=== PATIENT | male | born 1945 | race Caucasian/White ===

== ENCOUNTER 2021-08-25 18:58 | Inpatient (IN) ==
[2021-08-25 20:19] LABS: Hematocrit 47.6 % (37.5-50.1); Hemoglobin 16.3 g/dL (12.9-16.9); Mean Corpuscular HGB Conc 34.2 g/dL (31.6-35.5); Mean Corpuscular Hemoglobin 29.6 pg (28.0-33.3); Mean Corpuscular Volume 86.5 fL (83.0-100.0); Mean Platelet Volume 8.2 fL (9.4-12.4); Platelet Count 385 K/mcL (140-400); Red Cell Distribution Width 13.8 % (11.5-14.5)
[2021-08-25 20:22] LABS: White Blood Count 33.8 K/mcL (4.3-11.1)
[2021-08-25 20:27] LABS: INR 1.2; Prothrombin Time 13.2 Seconds (9.4-12.1)
[2021-08-25 20:29] LABS: Activated Partial Thrombo Time 32.7 Seconds (26.0-36.0)
[2021-08-25] MEDS ORDERED: Iopamidol - 370 500 ML MLS IVP ONE (20:37)
[2021-08-25 20:40] LABS: Alanine Aminotransferase 13 Units/L (7-52); Albumin 4.2 g/dL (3.5-5.7); Albumin/Globulin Ratio 1.2 (1.1-2.2); Alkaline Phosphatase 85 Units/L (34-104); Aspartate Amino Transferase 15 Units/L (13-39); BUN/Creatinine Ratio 19 (6-26); Bilirubin,Direct 0.1 mg/dL (0.0-0.2); Bilirubin,Indirect 0.5 mg/dL (0.0-1.0); Bilirubin,Total 0.6 mg/dL (0.3-1.0); Blood Urea Nitrogen 18 mg/dL (8-23); Calcium 9.8 mg/dL (8.6-10.3); Carbon Dioxide 25 mEq/L (23-29); Chloride 95 mEq/L (98-107); Globulin 3.6 g/dL (2.4-3.5); Glucose 116 mg/dL (70-105); Lipase 23 Units/L (11-82); Osmolality,Calculated 267 (280-300); Potassium 4.6 mEq/L (3.5-5.1); Sodium 127 mEq/L (136-145); Total Protein 7.8 g/dL (6.4-8.9); Troponin I < 0.03 ng/mL (< 0.04); eGFR For African Americans > 60 (> 60); eGFR For Non-African Americans > 60 (> 60)
[2021-08-25] MEDS ORDERED: Morphine Sulfate 2 MG/ML SYRINGE IVP STA (20:47)
[2021-08-25 20:48] LABS: Lymphocytes # 2.7 K/mcL (0.6-4.6); Monocytes # 0.7 K/mcL (0.0-1.3); Neutrophils # 30.4 K/mcL (1.6-8.9)
[2021-08-25 20:49] LABS: Platelet Estimate Normal (Normal)
[2021-08-25] MEDS ORDERED: Ondansetron 4 MG/2 ML VIAL IVP ONE (20:51)
[2021-08-25] MEDS ORDERED: 0.9 % Sodium Chloride 500 ML IVC ONE (20:51)
[2021-08-25 22:19] LABS: Bilirubin,Urine Negative (Negative); Blood,Urine Negative (Negative); Clarity,Urine Clear (Clear); Color,Urine Yellow (Yellow); Glucose,Urine (UA) Normal (Normal); Hyaline Casts,Urine Few per lpf (None Seen); Ketones,Urine 10 mg/dL (Negative); Leukocyte Esterase,Urine Negative (Negative); Mucus,Urine Few per lpf (None-Few); Nitrite,Urine Negative (Negative); PH,Urine 6.5 pH Units (5.0-8.0); Protein,Urine 30 mg/dL (Neg-Trace); Specific Gravity,Urine > 1.030 (1.010-1.025); Squamous Epithelial Cell,Urine Few per hpf (None-Few); WBC,Urine 0-3 per hpf (0-3)
[2021-08-25] MEDS ORDERED: *HR* HYDROmorphone (PF) 1 MG/ML SYRINGE IVP STA (22:25)
[2021-08-25] MEDS ORDERED: Naloxone 0.4 MG/ML INJ IVP PRN (22:44)
[2021-08-25] MEDS ORDERED: Piperacillin/Tazobactam 3.375 GM in 0.9 % Sodium Chloride Mini Bag 100 ML IVPB ONE (23:00)
[2021-08-25 23:38] LABS: Magnesium 1.9 mg/dL (1.6-2.6); Phosphorous 3.8 mg/dL (2.7-4.5)
[2021-08-25 23:58] LABS: Adenovirus Not Detected (Not Detect); Bordetella Pertussis Not Detected (Not Detect); Chlamydophila pneumoniae Not Detected (Not Detect); Coronavirus 229E Not Detected (Not Detect); Coronavirus HKU1 Not Detected (Not Detect); Coronavirus NL63 Not Detected (Not Detect); Coronavirus OC43 Not Detected (Not Detect); Human Metapneumovirus Not Detected (Not Detect); Human Rhinovirus/Enterovirus DETECTED (Not Detect); Influenza A Subtype 2009 H1 Not Detected (Not Detect); Influenza B Not Detected (Not Detect); Mycoplasma pneumoniae Not Detected (Not Detect); Parainfluenza Virus 1 Not Detected (Not Detect); Parainfluenza Virus 2 Not Detected (Not Detect); Parainfluenza Virus 3 Not Detected (Not Detect); Parainfluenza Virus 4 Not Detected (Not Detect); Respiratory Syncytial Virus Not Detected (Not Detect); SARS-CoV-2 Not Detected (Not Detect)
[2021-08-26] MEDS: Ondansetron 4 MG/2 ML VIAL IVP PRN ×3 (00:42→10:42)
[2021-08-26] MEDS: 0.9 % Sodium Chloride 1,000 ML IVC SCH ×3 (00:56→20:19)
[2021-08-26] MEDS: Morphine Sulfate 2 MG/ML SYRINGE IVP PRN ×5 (01:07→20:19)
[2021-08-26] MEDS ORDERED: Ipratropium/Albuterol Neb 3 ML IH PRN (01:24)
[2021-08-26 01:38] LABS: Red Cell Distribution Width 13.8 % (11.5-14.5)
[2021-08-26 01:40] LABS: Hemoglobin 16.1 g/dL (12.9-16.9); Mean Corpuscular HGB Conc 34.3 g/dL (31.6-35.5); Mean Corpuscular Hemoglobin 29.2 pg (28.0-33.3); Mean Corpuscular Volume 85.3 fL (83.0-100.0); Mean Platelet Volume 8.1 fL (9.4-12.4); Platelet Count 409 K/mcL (140-400); Red Blood Count 5.51 M/mcL (4.19-5.50)
[2021-08-26 01:49] LABS: White Blood Count 30.9 K/mcL (4.3-11.1)
[2021-08-26 02:01] LABS: BUN/Creatinine Ratio 23 (6-26); Blood Urea Nitrogen 22 mg/dL (8-23); Calcium 9.7 mg/dL (8.6-10.3); Carbon Dioxide 23 mEq/L (23-29); Chloride 94 mEq/L (98-107); Glucose 144 mg/dL (70-105); Magnesium 1.9 mg/dL (1.6-2.6); Osmolality,Calculated 268 (280-300); Sodium 126 mEq/L (136-145); eGFR For African Americans > 60 (> 60); eGFR For Non-African Americans > 60 (> 60)
[2021-08-26 02:24] LABS: Lymphocytes # 0.6 K/mcL (0.6-4.6); Monocytes # 0.6 K/mcL (0.0-1.3); Neutrophils # 29.7 K/mcL (1.6-8.9)
[2021-08-26 05:58] LABS: Estimated Average Glucose 131 mg/dl; Hemoglobin A1C 6.2 %
[2021-08-26] MEDS ORDERED: Lidocaine Jelly 11 ml Syringe MM STA (06:43)
[2021-08-26] MEDS: Piperacillin/Tazobactam 3.375 GM in 0.9 % Sodium Chloride Mini Bag 100 ML IVPB SCH ×2 (08:02→16:21)
[2021-08-26 08:31] LABS: BUN/Creatinine Ratio 23 (6-26); Blood Urea Nitrogen 23 mg/dL (8-23); Calcium 9.2 mg/dL (8.6-10.3); Carbon Dioxide 22 mEq/L (23-29); Chloride 97 mEq/L (98-107); Glucose 143 mg/dL (70-105); Osmolality,Calculated 270 (280-300); Potassium 4.6 mEq/L (3.5-5.1); Sodium 127 mEq/L (136-145); eGFR For African Americans > 60 (> 60); eGFR For Non-African Americans > 60 (> 60)
[2021-08-26] MEDS: Pantoprazole 40 MG VIAL IVP SCH (09:12)
[2021-08-26] MEDS: Latanoprost 2.5 ML BOTTLE BOTH EYES SCH (20:20)
[2021-08-27] MEDS: Piperacillin/Tazobactam 3.375 GM in 0.9 % Sodium Chloride Mini Bag 100 ML IVPB SCH ×4 (00:49→23:40)
[2021-08-27 02:43] LABS: Hemoglobin 16.3 g/dL (12.9-16.9); Mean Corpuscular Hemoglobin 29.1 pg (28.0-33.3); Mean Corpuscular Volume 85.6 fL (83.0-100.0); Mean Platelet Volume 8.7 fL (9.4-12.4); Platelet Count 427 K/mcL (140-400); Red Blood Count 5.61 M/mcL (4.19-5.50); Red Cell Distribution Width 14.3 % (11.5-14.5)
[2021-08-27 02:45] LABS: White Blood Count 10.6 K/mcL (4.3-11.1)
[2021-08-27 03:09] LABS: Calcium 9.2 mg/dL (8.6-10.3); Potassium 4.4 mEq/L (3.5-5.1)
[2021-08-27 04:14] LABS: Lymphocytes # 1.7 K/mcL (0.6-4.6); Monocytes # 0.4 K/mcL (0.0-1.3); Neutrophils # 8.5 K/mcL (1.6-8.9)
[2021-08-27] MEDS: 0.9 % Sodium Chloride 1,000 ML IVC SCH ×3 (04:21→23:40)
[2021-08-27] MEDS: Morphine Sulfate 2 MG/ML SYRINGE IVP PRN ×3 (04:31→23:39)
[2021-08-27] MEDS: Benzonatate 100 MG CAPSULE PO PRN (04:31)
[2021-08-27] MEDS: Levothyroxine Sodium 100 MCG VIAL IVP SCH (11:21)
[2021-08-27] MEDS: Pantoprazole 40 MG VIAL IVP SCH (11:21)
[2021-08-27] MEDS ORDERED: Milk and Molasses Enema 200 ML RC ONE (13:19)
[2021-08-27] MEDS: Latanoprost 2.5 ML BOTTLE BOTH EYES SCH (19:45)
[2021-08-28 02:25] LABS: Basophils % 0.2 %; Eosinophils % 0.2 %; Hematocrit 41.2 % (37.5-50.1); Immature Granulocytes % 0.4 % (0-4); Lymphocytes # 1.5 K/mcL (0.6-4.6); Lymphocytes % 15.7 %; Mean Corpuscular HGB Conc 34.2 g/dL (31.6-35.5); Mean Corpuscular Hemoglobin 29.1 pg (28.0-33.3); Mean Corpuscular Volume 84.9 fL (83.0-100.0); Mean Platelet Volume 8.4 fL (9.4-12.4); Monocytes # 1.8 K/mcL (0.0-1.3); Monocytes % 18.3 %; Platelet Count 348 K/mcL (140-400); Red Blood Count 4.85 M/mcL (4.19-5.50); Red Cell Distribution Width 14.4 % (11.5-14.5); Segmented Neutrophils % 65.2 %; White Blood Count 9.6 K/mcL (4.3-11.1)
[2021-08-28 02:26] LABS: Hemoglobin 14.1 g/dL (12.9-16.9); Neutrophils # 6.3 K/mcL (1.6-8.9)
[2021-08-28 02:48] LABS: BUN/Creatinine Ratio 29 (6-26); Blood Urea Nitrogen 28 mg/dL (8-23); Calcium 9.1 mg/dL (8.6-10.3); Carbon Dioxide 28 mEq/L (23-29); Chloride 102 mEq/L (98-107); Glucose 97 mg/dL (70-105); Osmolality,Calculated 289 (280-300); Sodium 137 mEq/L (136-145); eGFR For African Americans > 60 (> 60); eGFR For Non-African Americans > 60 (> 60)
[2021-08-28] MEDS: 0.9 % Sodium Chloride 1,000 ML IVC SCH ×2 (03:45→14:00)
[2021-08-28] MEDS: Morphine Sulfate 2 MG/ML SYRINGE IVP PRN ×3 (05:16→20:27)
[2021-08-28] MEDS: Pantoprazole 40 MG VIAL IVP SCH (09:23)
[2021-08-28] MEDS: Piperacillin/Tazobactam 3.375 GM in 0.9 % Sodium Chloride Mini Bag 100 ML IVPB SCH ×2 (09:24→17:42)
[2021-08-28] MEDS: Levothyroxine Sodium 100 MCG VIAL IVP SCH (09:24)
[2021-08-28] MEDS ORDERED: Milk and Molasses Enema 200 ML RC ONE (10:06)
[2021-08-29] MEDS: Piperacillin/Tazobactam 3.375 GM in 0.9 % Sodium Chloride Mini Bag 100 ML IVPB SCH ×3 (00:29→17:18)
[2021-08-29 01:31] LABS: Enterococcus faecalis by PCR Not Detected (Not Detect); Enterococcus faecium by PCR Not Detected (Not Detect); vanA/B Vancomycin-Resist Genes Not Detected (Not Detect)
[2021-08-29 01:32] LABS: A.calcoaceticus-baumannii cplx Not Detected (Not Detect); Bacteroides fragilis by PCR Not Detected (Not Detect); Candida albicans by PCR Not Detected (Not Detect); Candida auris by PCR Not Detected (Not Detect); Candida glabrata by PCR Not Detected (Not Detect); Candida krusei by PCR Not Detected (Not Detect); Candida parapsilosis by PCR Not Detected (Not Detect); Candida tropicalis by PCR Not Detected (Not Detect); Crypto. neoformans/gattii PCR Not Detected (Not Detect); Enterobacter cloacae Cmplx PCR Not Detected (Not Detect); Enterobacterales by PCR Not Detected (Not Detect); Escherichia coli by PCR Not Detected (Not Detect); Klebs. pneumoniae group by PCR Not Detected (Not Detect); Klebsiella aerogenes by PCR Not Detected (Not Detect); Klebsiella oxytoca by PCR Not Detected (Not Detect); Proteus by PCR Not Detected (Not Detect); Pseudomonas aeruginosa by PCR Not Detected (Not Detect); Salmonella species by PCR Not Detected (Not Detect); Serratia marcescens by PCR Not Detected (Not Detect); Staph epidermidis by PCR Not Detected (Not Detect); Staph lugdunensis by PCR Not Detected (Not Detect); Staphylococcus aureus by PCR Not Detected (Not Detect); Staphylococcus by PCR DETECTED (Not Detect); Stenotrophomonas maltophilia Not Detected (Not Detect); Streptococcus agalactiae(B)PCR Not Detected (Not Detect); Streptococcus by PCR Not Detected (Not Detect); Streptococcus pneumoniae PCR Not Detected (Not Detect); Streptococcus pyogenes (A) PCR Not Detected (Not Detect)
[2021-08-29] MEDS: Latanoprost 2.5 ML BOTTLE BOTH EYES SCH ×2 (04:21→20:57)
[2021-08-29] MEDS: 0.9 % Sodium Chloride 1,000 ML IVC SCH (04:22)
[2021-08-29] MEDS: Morphine Sulfate 2 MG/ML SYRINGE IVP PRN (04:57)
[2021-08-29 05:06] LABS: Basophils % 0.5 %; Eosinophils % 0.2 %; Hemoglobin 14.8 g/dL (12.9-16.9); Immature Granulocytes % 0.2 % (0-4); Lymphocytes # 1.8 K/mcL (0.6-4.6); Lymphocytes % 20.7 %; Mean Corpuscular HGB Conc 33.6 g/dL (31.6-35.5); Mean Corpuscular Hemoglobin 29.2 pg (28.0-33.3); Mean Platelet Volume 8.3 fL (9.4-12.4); Monocytes # 1.4 K/mcL (0.0-1.3); Monocytes % 15.7 %; Neutrophils # 5.6 K/mcL (1.6-8.9); Platelet Count 346 K/mcL (140-400); Red Blood Count 5.06 M/mcL (4.19-5.50); Red Cell Distribution Width 14.5 % (11.5-14.5); Segmented Neutrophils % 62.7 %; White Blood Count 8.9 K/mcL (4.3-11.1)
[2021-08-29 05:17] LABS: BUN/Creatinine Ratio 22 (6-26); Blood Urea Nitrogen 16 mg/dL (8-23); Calcium 9.2 mg/dL (8.6-10.3); Carbon Dioxide 27 mEq/L (23-29); Chloride 102 mEq/L (98-107); Glucose 85 mg/dL (70-105); Osmolality,Calculated 288 (280-300); Potassium 3.5 mEq/L (3.5-5.1); Sodium 139 mEq/L (136-145); eGFR For African Americans > 60 (> 60); eGFR For Non-African Americans > 60 (> 60)
[2021-08-29 05:52] LABS: Platelet Estimate Normal (Normal)
[2021-08-29] MEDS: Levothyroxine Sodium 100 MCG VIAL IVP SCH (07:51)
[2021-08-29] MEDS: Pantoprazole 40 MG VIAL IVP SCH (07:52)
[2021-08-29] MEDS: D5% in 0.9% NACL 1,000 ML IVC SCH (15:09)
[2021-08-29] MEDS: Benzonatate 100 MG CAPSULE PO PRN (20:57)
[2021-08-30] MEDS: Piperacillin/Tazobactam 3.375 GM in 0.9 % Sodium Chloride Mini Bag 100 ML IVPB SCH ×4 (00:33→23:48)
[2021-08-30 03:50] LABS: BUN/Creatinine Ratio 17 (6-26); Blood Urea Nitrogen 11 mg/dL (8-23); Calcium 8.8 mg/dL (8.6-10.3); Carbon Dioxide 25 mEq/L (23-29); Chloride 103 mEq/L (98-107); Glucose 98 mg/dL (70-105); Osmolality,Calculated 283 (280-300); Potassium 3.1 mEq/L (3.5-5.1); Sodium 137 mEq/L (136-145); eGFR For African Americans > 60 (> 60); eGFR For Non-African Americans > 60 (> 60)
[2021-08-30] MEDS: D5% in 0.9% NACL 1,000 ML IVC SCH ×3 (04:59→17:40)
[2021-08-30] MEDS: Levothyroxine Sodium 100 MCG VIAL IVP SCH (08:54)
[2021-08-30] MEDS: Pantoprazole 40 MG VIAL IVP SCH (08:54)
[2021-08-30 09:33] LABS: Magnesium 1.8 mg/dL (1.6-2.6); Phosphorous 2.3 mg/dL (2.7-4.5); Triglycerides 79 mg/dL (< 150)
[2021-08-30] MEDS ORDERED: *HR* Propofol 200 MG/20 ML VIAL IVP ONE (10:55)
[2021-08-30] MEDS ORDERED: Lidocaine HCL 4 ML Topical Solution (Laryng-O-Jet Kit Sterile Pak) TP ONE (10:55)
[2021-08-30] MEDS ORDERED: Ondansetron 4 MG/2 ML VIAL ONE (10:55)
[2021-08-30] MEDS ORDERED: *HR* FentaNYL (PF) 100 MCG/2 ML VIAL ONE ×2 (10:55→13:24)
[2021-08-30] MEDS ORDERED: *HR* Succinylcholine 200 MG/10 ML VIAL IVP ONE (10:55)
[2021-08-30] MEDS ORDERED: Lidocaine -MPF 2% 2 ML VIAL ONE (10:55)
[2021-08-30] MEDS ORDERED: *HR* Rocuronium Bromide 50 MG/5 ML VIAL ONE (10:55)
[2021-08-30] MEDS: Ipratropium/Albuterol Neb 3 ML IH PRN (12:05)
[2021-08-30] MEDS ORDERED: Ipratropium/Albuterol Neb 3 ML IH ONE (12:18)
[2021-08-30] MEDS ORDERED: D10% in Water 500 ML IVC PRN ×2 (12:34→17:21)
[2021-08-30] MEDS ORDERED: EPHEDrine 50 MG/ML VIAL ONE (13:07)
[2021-08-30] MEDS ORDERED: Dextrose Gel 15 GM/37.5 ML TUBE PO PRN ×4 (13:26→17:21)
[2021-08-30] MEDS ORDERED: *HR* Dextrose 50 % in Water (Syg) 50 ML SYRINGE IVP PRN ×2 (13:26→17:21)
[2021-08-30] MEDS ORDERED: D5% in Water 1,000 ML IVC PRN ×2 (13:26→17:21)
[2021-08-30] MEDS: Morphine Sulfate 2 MG/ML SYRINGE IVP PRN ×2 (15:20→19:47)
[2021-08-30] MEDS: Ondansetron 4 MG/2 ML VIAL IVP PRN (15:37)
[2021-08-30] MEDS ORDERED: Insulin LISPRO 300 UNITS/3 ML VIAL SUBQ SCH (16:00)
[2021-08-30] MEDS ORDERED: Ondansetron 4 MG/2 ML VIAL IVP PRN ×2 (16:05→17:21)
[2021-08-30] MEDS ORDERED: *HR* Labetalol 20 MG/4 ML SYRINGE IVP PRN (16:05)
[2021-08-30] MEDS ORDERED: *HR* HYDROmorphone (PF) 1 MG/ML SYRINGE IVP PRN (16:05)
[2021-08-30] MEDS ORDERED: Famotidine 20 MG/2 ML VIAL IVP ONE (16:05)
[2021-08-30] MEDS ORDERED: Acetaminophen IV 1,000 MG/100 ML BAG IVPB ONE (16:05)
[2021-08-30] MEDS ORDERED: *HR* HYDROmorphone 2 MG TABLET PO PRN (16:05)
[2021-08-30] MEDS ORDERED: Clinimix E 5%-15% SOLUTION 2,000 ML with MVI, adult with vitamin K 10 ML IVC SCH ×2 (17:00→17:21)
[2021-08-30] MEDS ORDERED: Naloxone 0.4 MG/ML INJ IVP PRN (17:21)
[2021-08-30] MEDS ORDERED: Fluconazole 400 MG/200 ML 400 MG/200 ML BAG IVPB SCH (17:21)
[2021-08-30] MEDS: Fluconazole 400 MG/200 ML 400 MG/200 ML BAG IVPB SCH (20:08)
[2021-08-30] MEDS: *HR* Heparin 5,000 UNIT/ML VIAL SQ SCH (20:09)
[2021-08-30] MEDS: Latanoprost 2.5 ML BOTTLE BOTH EYES SCH (20:34)
[2021-08-30] MEDS: Acetaminophen IV 1,000 MG/100 ML BAG IVPB SCH (23:47)
[2021-08-30] MEDS: Insulin LISPRO 300 UNITS/3 ML VIAL SUBQ SCH (23:49)
[2021-08-31] MEDS: D5% in 0.9% NACL 1,000 ML IVC SCH ×2 (02:06→16:10)
[2021-08-31] MEDS: Morphine Sulfate 2 MG/ML SYRINGE IVP PRN ×2 (02:15→06:37)
[2021-08-31 03:15] LABS: Basophils % 0.1 %; Eosinophils % 0.1 %; Hematocrit 40.1 % (37.5-50.1); Hemoglobin 13.5 g/dL (12.9-16.9); Immature Granulocytes % 1.3 % (0-4); Lymphocytes # 0.8 K/mcL (0.6-4.6); Lymphocytes % 7.1 %; Mean Corpuscular HGB Conc 33.7 g/dL (31.6-35.5); Mean Corpuscular Volume 86.1 fL (83.0-100.0); Mean Platelet Volume 8.8 fL (9.4-12.4); Monocytes % 5.8 %; Neutrophils # 9.5 K/mcL (1.6-8.9); Platelet Count 307 K/mcL (140-400); Red Blood Count 4.66 M/mcL (4.19-5.50); Red Cell Distribution Width 14.2 % (11.5-14.5); Segmented Neutrophils % 85.6 %; White Blood Count 11.1 K/mcL (4.3-11.1)
[2021-08-31] MEDS: Insulin LISPRO 300 UNITS/3 ML VIAL SUBQ SCH ×6 (03:16→23:23)
[2021-08-31 03:26] LABS: Monocytes # 0.6 K/mcL (0.0-1.3)
[2021-08-31 03:28] LABS: Alanine Aminotransferase 9 Units/L (7-52); Albumin 2.5 g/dL (3.5-5.7); Albumin/Globulin Ratio 1.1 (1.1-2.2); Alkaline Phosphatase 32 Units/L (34-104); Aspartate Amino Transferase 11 Units/L (13-39); BUN/Creatinine Ratio 18 (6-26); Bilirubin,Total 0.8 mg/dL (0.3-1.0); Blood Urea Nitrogen 12 mg/dL (8-23); Calcium 7.7 mg/dL (8.6-10.3); Carbon Dioxide 20 mEq/L (23-29); Chloride 109 mEq/L (98-107); Globulin 2.3 g/dL (2.4-3.5); Glucose 196 mg/dL (70-105); Magnesium 1.6 mg/dL (1.6-2.6); Osmolality,Calculated 291 (280-300); Phosphorous 4.2 mg/dL (2.7-4.5); Potassium 3.3 mEq/L (3.5-5.1); Sodium 138 mEq/L (136-145); Total Protein 4.8 g/dL (6.4-8.9); eGFR For African Americans > 60 (> 60); eGFR For Non-African Americans > 60 (> 60)
[2021-08-31] MEDS: *HR* Heparin 5,000 UNIT/ML VIAL SQ SCH ×2 (04:50→17:46)
[2021-08-31] MEDS: Acetaminophen IV 1,000 MG/100 ML BAG IVPB SCH ×3 (05:39→17:44)
[2021-08-31] MEDS: Piperacillin/Tazobactam 3.375 GM in 0.9 % Sodium Chloride Mini Bag 100 ML IVPB SCH ×2 (10:03→16:10)
[2021-08-31] MEDS: Pantoprazole 40 MG VIAL IVP SCH (10:03)
[2021-08-31] MEDS: Fluconazole 400 MG/200 ML 400 MG/200 ML BAG IVPB SCH (10:04)
[2021-08-31] MEDS: Levothyroxine Sodium 100 MCG VIAL IVP SCH (10:05)
[2021-08-31] MEDS ORDERED: Clinimix E 5%-15% SOLUTION 2,000 ML with MVI, adult with vitamin K 10 ML IVC SCH (17:00)
[2021-08-31] MEDS ORDERED: Fluconazole 400 MG/200 ML 400 MG/200 ML BAG IVPB SCH (20:00)
[2021-09-01] MEDS: Acetaminophen IV 1,000 MG/100 ML BAG IVPB SCH ×5 (00:14→23:55)
[2021-09-01] MEDS: Piperacillin/Tazobactam 3.375 GM in 0.9 % Sodium Chloride Mini Bag 100 ML IVPB SCH ×4 (00:18→23:55)
[2021-09-01] MEDS: Insulin LISPRO 300 UNITS/3 ML VIAL SUBQ SCH ×6 (01:01→20:35)
[2021-09-01 05:20] LABS: Eosinophils % 0.1 %; Hematocrit 37.9 % (37.5-50.1); Hemoglobin 12.6 g/dL (12.9-16.9); Immature Granulocytes % 4.2 % (0-4); Lymphocytes # 2.1 K/mcL (0.6-4.6); Lymphocytes % 7.5 %; Mean Corpuscular HGB Conc 33.2 g/dL (31.6-35.5); Mean Corpuscular Hemoglobin 28.4 pg (28.0-33.3); Mean Corpuscular Volume 85.6 fL (83.0-100.0); Monocytes # 1.5 K/mcL (0.0-1.3); Monocytes % 5.3 %; Neutrophils # 23.2 K/mcL (1.6-8.9); Platelet Count 237 K/mcL (140-400); Red Blood Count 4.43 M/mcL (4.19-5.50); Red Cell Distribution Width 14.6 % (11.5-14.5); Segmented Neutrophils % 82.9 %
[2021-09-01 05:36] LABS: Alanine Aminotransferase 8 Units/L (7-52); Albumin 2.6 g/dL (3.5-5.7); Alkaline Phosphatase 37 Units/L (34-104); Aspartate Amino Transferase 11 Units/L (13-39); BUN/Creatinine Ratio 16 (6-26); Bilirubin,Total 0.5 mg/dL (0.3-1.0); Blood Urea Nitrogen 11 mg/dL (8-23); Carbon Dioxide 24 mEq/L (23-29); Chloride 105 mEq/L (98-107); Globulin 2.5 g/dL (2.4-3.5); Glucose 93 mg/dL (70-105); Magnesium 1.8 mg/dL (1.6-2.6); Osmolality,Calculated 283 (280-300); Potassium 3.5 mEq/L (3.5-5.1); Sodium 137 mEq/L (136-145); Total Protein 5.1 g/dL (6.4-8.9); eGFR For African Americans > 60 (> 60); eGFR For Non-African Americans > 60 (> 60)
[2021-09-01] MEDS: Latanoprost 2.5 ML BOTTLE BOTH EYES SCH ×2 (05:43→21:54)
[2021-09-01 06:05] LABS: Platelet Estimate Normal (Normal)
[2021-09-01] MEDS: D5% in 0.9% NACL 1,000 ML IVC SCH (06:13)
[2021-09-01] MEDS: *HR* Heparin 5,000 UNIT/ML VIAL SQ SCH ×2 (06:36→17:25)
[2021-09-01] MEDS: Pantoprazole 40 MG VIAL IVP SCH (09:55)
[2021-09-01] MEDS: Levothyroxine Sodium 100 MCG VIAL IVP SCH (09:55)
[2021-09-01] MEDS: Fluconazole 400 MG/200 ML 400 MG/200 ML BAG IVPB SCH (09:56)
[2021-09-01] MEDS ORDERED: Furosemide 40 MG/4 ML VIAL IVP ONE (09:58)
[2021-09-01] MEDS ORDERED: Potassium Phosphate 44 MEQ in 0.9 % Sodium Chloride 250 ML IVPB ONE (12:04)
[2021-09-01] MEDS ORDERED: Clinimix E 5%-15% SOLUTION 2,000 ML with MVI, adult with vitamin K 10 ML IVC SCH (17:00)
[2021-09-01] MEDS ORDERED: Furosemide 20 MG/2 ML VIAL IVP ONE (21:59)
[2021-09-01] MEDS: Ipratropium/Albuterol Neb 3 ML IH PRN (22:19)
[2021-09-02] MEDS: Insulin LISPRO 300 UNITS/3 ML VIAL SUBQ SCH ×6 (00:03→21:55)
[2021-09-02] MEDS: Acetaminophen IV 1,000 MG/100 ML BAG IVPB SCH (04:27)
[2021-09-02] MEDS: *HR* Heparin 5,000 UNIT/ML VIAL SQ SCH ×2 (04:28→16:47)
[2021-09-02 05:57] LABS: Basophils # 0.1 K/mcL (0.0-0.2); Basophils % 0.6 %; Eosinophils # 0.2 K/mcL (0.0-0.6); Eosinophils % 0.9 %; Hematocrit 36.5 % (37.5-50.1); Hemoglobin 12.2 g/dL (12.9-16.9); Immature Granulocytes % 1.7 % (0-4); Lymphocytes # 1.5 K/mcL (0.6-4.6); Lymphocytes % 7.8 %; Mean Corpuscular HGB Conc 33.4 g/dL (31.6-35.5); Mean Corpuscular Hemoglobin 28.8 pg (28.0-33.3); Mean Corpuscular Volume 86.3 fL (83.0-100.0); Mean Platelet Volume 9.6 fL (9.4-12.4); Monocytes % 4.3 %; Neutrophils # 16.7 K/mcL (1.6-8.9); Platelet Count 241 K/mcL (140-400); Red Blood Count 4.23 M/mcL (4.19-5.50); Red Cell Distribution Width 14.8 % (11.5-14.5); Segmented Neutrophils % 84.7 %; White Blood Count 19.7 K/mcL (4.3-11.1)
[2021-09-02 06:10] LABS: Monocytes # 0.9 K/mcL (0.0-1.3)
[2021-09-02 06:16] LABS: Alanine Aminotransferase 9 Units/L (7-52); Albumin 2.5 g/dL (3.5-5.7); Albumin/Globulin Ratio 0.9 (1.1-2.2); Alkaline Phosphatase 57 Units/L (34-104); Aspartate Amino Transferase 12 Units/L (13-39); BUN/Creatinine Ratio 22 (6-26); Bilirubin,Total 0.5 mg/dL (0.3-1.0); Blood Urea Nitrogen 15 mg/dL (8-23); Calcium 8.2 mg/dL (8.6-10.3); Carbon Dioxide 27 mEq/L (23-29); Chloride 102 mEq/L (98-107); Globulin 2.7 g/dL (2.4-3.5); Glucose 121 mg/dL (70-105); Magnesium 1.7 mg/dL (1.6-2.6); Osmolality,Calculated 280 (280-300); Phosphorous 2.9 mg/dL (2.7-4.5); Potassium 3.2 mEq/L (3.5-5.1); Sodium 134 mEq/L (136-145); Total Protein 5.2 g/dL (6.4-8.9); eGFR For African Americans > 60 (> 60); eGFR For Non-African Americans > 60 (> 60)
[2021-09-02] MEDS ORDERED: Furosemide 20 MG/2 ML VIAL IVP ONE (09:12)
[2021-09-02] MEDS: Piperacillin/Tazobactam 3.375 GM in 0.9 % Sodium Chloride Mini Bag 100 ML IVPB SCH ×2 (09:47→16:35)
[2021-09-02] MEDS: Pantoprazole 40 MG VIAL IVP SCH (09:48)
[2021-09-02] MEDS: Fluconazole 400 MG/200 ML 400 MG/200 ML BAG IVPB SCH (09:48)
[2021-09-02] MEDS: Levothyroxine Sodium 100 MCG VIAL IVP SCH (09:49)
[2021-09-02] MEDS ORDERED: Clinimix E 5%-15% SOLUTION 2,000 ML with MVI, adult with vitamin K 10 ML IVC SCH (17:00)
[2021-09-02] MEDS: Latanoprost 2.5 ML BOTTLE BOTH EYES SCH (21:56)
[2021-09-03] MEDS: Piperacillin/Tazobactam 3.375 GM in 0.9 % Sodium Chloride Mini Bag 100 ML IVPB SCH ×3 (00:41→17:12)
[2021-09-03] MEDS: Insulin LISPRO 300 UNITS/3 ML VIAL SUBQ SCH ×6 (00:42→20:36)
[2021-09-03] MEDS: *HR* Heparin 5,000 UNIT/ML VIAL SQ SCH ×2 (04:00→17:09)
[2021-09-03 04:28] LABS: BUN/Creatinine Ratio 25 (6-26); Blood Urea Nitrogen 15 mg/dL (8-23); Calcium 8.2 mg/dL (8.6-10.3); Carbon Dioxide 28 mEq/L (23-29); Chloride 100 mEq/L (98-107); Glucose 133 mg/dL (70-105); Magnesium 1.7 mg/dL (1.6-2.6); Osmolality,Calculated 279 (280-300); Phosphorous 3.1 mg/dL (2.7-4.5); Potassium 3.3 mEq/L (3.5-5.1); Sodium 133 mEq/L (136-145); eGFR For African Americans > 60 (> 60); eGFR For Non-African Americans > 60 (> 60)
[2021-09-03] MEDS: Levothyroxine Sodium 100 MCG VIAL IVP SCH (09:41)
[2021-09-03] MEDS: Pantoprazole 40 MG VIAL IVP SCH (09:41)
[2021-09-03] MEDS: Fluconazole 400 MG/200 ML 400 MG/200 ML BAG IVPB SCH (09:42)
[2021-09-03 09:55] LABS: Hematocrit 39.2 % (37.5-50.1); Hemoglobin 13.5 g/dL (12.9-16.9); Mean Corpuscular HGB Conc 34.4 g/dL (31.6-35.5); Mean Corpuscular Volume 84.1 fL (83.0-100.0); Mean Platelet Volume 9.5 fL (9.4-12.4); Platelet Count 275 K/mcL (140-400); Red Blood Count 4.66 M/mcL (4.19-5.50); Red Cell Distribution Width 14.4 % (11.5-14.5); White Blood Count 18.7 K/mcL (4.3-11.1)
[2021-09-03 10:26] LABS: Eosinophils # 0.2 K/mcL (0.0-0.6); Lymphocytes # 1.9 K/mcL (0.6-4.6); Monocytes # 0.2 K/mcL (0.0-1.3); Neutrophils # 16.3 K/mcL (1.6-8.9); Platelet Estimate Normal (Normal)
[2021-09-03] MEDS ORDERED: Clinimix E 5%-15% SOLUTION 2,000 ML with MVI, adult with vitamin K 10 ML IVC SCH (17:00)
[2021-09-03] MEDS: Latanoprost 2.5 ML BOTTLE BOTH EYES SCH (20:43)
[2021-09-04] MEDS: Piperacillin/Tazobactam 3.375 GM in 0.9 % Sodium Chloride Mini Bag 100 ML IVPB SCH ×3 (01:05→16:41)
[2021-09-04] MEDS: Insulin LISPRO 300 UNITS/3 ML VIAL SUBQ SCH ×7 (02:16→21:15)
[2021-09-04 03:40] LABS: Basophils # 0.1 K/mcL (0.0-0.2); Basophils % 0.6 %; Eosinophils # 0.2 K/mcL (0.0-0.6); Eosinophils % 1.2 %; Immature Granulocytes % 2.3 % (0-4); Lymphocytes # 1.6 K/mcL (0.6-4.6); Lymphocytes % 10.1 %; Mean Corpuscular HGB Conc 34.8 g/dL (31.6-35.5); Mean Corpuscular Hemoglobin 29.8 pg (28.0-33.3); Mean Corpuscular Volume 85.5 fL (83.0-100.0); Mean Platelet Volume 9.5 fL (9.4-12.4); Monocytes # 1.3 K/mcL (0.0-1.3); Monocytes % 8.6 %; Platelet Count 237 K/mcL (140-400); Red Blood Count 3.86 M/mcL (4.19-5.50); Red Cell Distribution Width 14.6 % (11.5-14.5); Segmented Neutrophils % 77.2 %; White Blood Count 15.5 K/mcL (4.3-11.1)
[2021-09-04 03:41] LABS: Hemoglobin 11.5 g/dL (12.9-16.9)
[2021-09-04 03:56] LABS: BUN/Creatinine Ratio 25 (6-26); Blood Urea Nitrogen 15 mg/dL (8-23); Calcium 8.2 mg/dL (8.6-10.3); Carbon Dioxide 25 mEq/L (23-29); Chloride 100 mEq/L (98-107); Glucose 167 mg/dL (70-105); Magnesium 1.8 mg/dL (1.6-2.6); Osmolality,Calculated 279 (280-300); Phosphorous 3.1 mg/dL (2.7-4.5); Potassium 3.6 mEq/L (3.5-5.1); Sodium 132 mEq/L (136-145); eGFR For African Americans > 60 (> 60); eGFR For Non-African Americans > 60 (> 60)
[2021-09-04] MEDS: *HR* Heparin 5,000 UNIT/ML VIAL SQ SCH ×2 (05:39→16:41)
[2021-09-04] MEDS: Levothyroxine Sodium 100 MCG VIAL IVP SCH (08:58)
[2021-09-04] MEDS: Pantoprazole 40 MG VIAL IVP SCH (08:59)
[2021-09-04] MEDS: Fluconazole 400 MG/200 ML 400 MG/200 ML BAG IVPB SCH (08:59)
[2021-09-04] MEDS ORDERED: Iopamidol - 370 500 ML MLS IVP ONE (10:51)
[2021-09-04] MEDS ORDERED: Clinimix E 5%-15% SOLUTION 2,000 ML with MVI, adult with vitamin K 10 ML IVC SCH (17:00)
[2021-09-04] MEDS: Latanoprost 2.5 ML BOTTLE BOTH EYES SCH (21:22)
[2021-09-05] MEDS: Insulin LISPRO 300 UNITS/3 ML VIAL SUBQ SCH ×5 (00:52→16:31)
[2021-09-05] MEDS: Piperacillin/Tazobactam 3.375 GM in 0.9 % Sodium Chloride Mini Bag 100 ML IVPB SCH ×3 (00:54→16:32)
[2021-09-05] MEDS: Ipratropium/Albuterol Neb 3 ML IH PRN (03:30)
[2021-09-05 03:53] LABS: Basophils % 0.2 %; Eosinophils # 0.3 K/mcL (0.0-0.6); Eosinophils % 2.1 %; Hematocrit 34.4 % (37.5-50.1); Hemoglobin 11.6 g/dL (12.9-16.9); Immature Granulocytes % 4.7 % (0-4); Lymphocytes # 2.2 K/mcL (0.6-4.6); Lymphocytes % 13.7 %; Mean Corpuscular HGB Conc 33.7 g/dL (31.6-35.5); Mean Corpuscular Hemoglobin 28.7 pg (28.0-33.3); Mean Corpuscular Volume 85.1 fL (83.0-100.0); Mean Platelet Volume 9.5 fL (9.4-12.4); Monocytes # 1.5 K/mcL (0.0-1.3); Monocytes % 9.7 %; Platelet Count 263 K/mcL (140-400); Red Blood Count 4.04 M/mcL (4.19-5.50); Red Cell Distribution Width 14.6 % (11.5-14.5); Segmented Neutrophils % 69.6 %; White Blood Count 15.8 K/mcL (4.3-11.1)
[2021-09-05 04:12] LABS: BUN/Creatinine Ratio 24 (6-26); Blood Urea Nitrogen 14 mg/dL (8-23); Calcium 8.3 mg/dL (8.6-10.3); Carbon Dioxide 25 mEq/L (23-29); Chloride 101 mEq/L (98-107); Glucose 110 mg/dL (70-105); Osmolality,Calculated 277 (280-300); Phosphorous 3.3 mg/dL (2.7-4.5); Potassium 3.6 mEq/L (3.5-5.1); Sodium 133 mEq/L (136-145); eGFR For African Americans > 60 (> 60); eGFR For Non-African Americans > 60 (> 60)
[2021-09-05] MEDS: *HR* Heparin 5,000 UNIT/ML VIAL SQ SCH ×2 (05:02→16:33)
[2021-09-05] MEDS: Pantoprazole 40 MG VIAL IVP SCH (09:06)
[2021-09-05] MEDS: Levothyroxine Sodium 100 MCG VIAL IVP SCH (09:06)
[2021-09-05] MEDS: Fluconazole 400 MG/200 ML 400 MG/200 ML BAG IVPB SCH (09:13)
[2021-09-05] MEDS ORDERED: Clinimix E 5%-15% SOLUTION 2,000 ML with MVI, adult with vitamin K 10 ML IVC SCH (17:00)
[2021-09-05] MEDS: Latanoprost 2.5 ML BOTTLE BOTH EYES SCH (19:48)
[2021-09-06] MEDS: Piperacillin/Tazobactam 3.375 GM in 0.9 % Sodium Chloride Mini Bag 100 ML IVPB SCH ×3 (00:26→16:36)
[2021-09-06] MEDS: Insulin LISPRO 300 UNITS/3 ML VIAL SUBQ SCH ×7 (04:48→23:07)
[2021-09-06 05:11] LABS: Basophils % 0.3 %; Eosinophils # 0.4 K/mcL (0.0-0.6); Eosinophils % 2.6 %; Hemoglobin 11.3 g/dL (12.9-16.9); Immature Granulocytes % 6.4 % (0-4); Lymphocytes # 1.9 K/mcL (0.6-4.6); Lymphocytes % 12.4 %; Mean Corpuscular HGB Conc 33.2 g/dL (31.6-35.5); Mean Corpuscular Hemoglobin 28.5 pg (28.0-33.3); Mean Platelet Volume 10.2 fL (9.4-12.4); Monocytes # 1.5 K/mcL (0.0-1.3); Monocytes % 9.9 %; Neutrophils # 10.7 K/mcL (1.6-8.9); Platelet Count 318 K/mcL (140-400); Red Blood Count 3.97 M/mcL (4.19-5.50); Red Cell Distribution Width 14.6 % (11.5-14.5); Segmented Neutrophils % 68.4 %; White Blood Count 15.6 K/mcL (4.3-11.1)
[2021-09-06 05:13] LABS: Basophils # 0.1 K/mcL (0.0-0.2); Mean Corpuscular Volume 85.6 fL (83.0-100.0)
[2021-09-06 05:29] LABS: BUN/Creatinine Ratio 23 (6-26); Blood Urea Nitrogen 14 mg/dL (8-23); Calcium 8.3 mg/dL (8.6-10.3); Carbon Dioxide 25 mEq/L (23-29); Chloride 98 mEq/L (98-107); Glucose 97 mg/dL (70-105); Magnesium 2.1 mg/dL (1.6-2.6); Osmolality,Calculated 272 (280-300); Phosphorous 3.3 mg/dL (2.7-4.5); Sodium 131 mEq/L (136-145); eGFR For African Americans > 60 (> 60); eGFR For Non-African Americans > 60 (> 60)
[2021-09-06] MEDS: *HR* Heparin 5,000 UNIT/ML VIAL SQ SCH ×2 (05:41→16:34)
[2021-09-06] MEDS: Levothyroxine Sodium 100 MCG VIAL IVP SCH (09:13)
[2021-09-06] MEDS: Pantoprazole 40 MG VIAL IVP SCH (09:13)
[2021-09-06] MEDS: Fluconazole 400 MG/200 ML 400 MG/200 ML BAG IVPB SCH (09:13)
[2021-09-06] MEDS ORDERED: Clinimix E 5%-15% SOLUTION 2,000 ML with MVI, adult with vitamin K 10 ML IVC SCH (17:00)
[2021-09-06] MEDS: Latanoprost 2.5 ML BOTTLE BOTH EYES SCH (21:24)
[2021-09-07] MEDS: Insulin LISPRO 300 UNITS/3 ML VIAL SUBQ SCH ×6 (01:08→21:35)
[2021-09-07] MEDS: Piperacillin/Tazobactam 3.375 GM in 0.9 % Sodium Chloride Mini Bag 100 ML IVPB SCH ×3 (01:49→17:08)
[2021-09-07] MEDS: *HR* Heparin 5,000 UNIT/ML VIAL SQ SCH ×2 (05:41→17:07)
[2021-09-07 07:35] LABS: Hematocrit 32.9 % (37.5-50.1); Hemoglobin 11.2 g/dL (12.9-16.9); Mean Corpuscular Hemoglobin 28.9 pg (28.0-33.3); Mean Corpuscular Volume 84.8 fL (83.0-100.0); Mean Platelet Volume 10.1 fL (9.4-12.4); Platelet Count 455 K/mcL (140-400); Red Blood Count 3.88 M/mcL (4.19-5.50); Red Cell Distribution Width 14.8 % (11.5-14.5); White Blood Count 16.7 K/mcL (4.3-11.1)
[2021-09-07 07:37] LABS: BUN/Creatinine Ratio 23 (6-26); Blood Urea Nitrogen 14 mg/dL (8-23); Calcium 8.2 mg/dL (8.6-10.3); Carbon Dioxide 25 mEq/L (23-29); Chloride 100 mEq/L (98-107); Glucose 123 mg/dL (70-105); Magnesium 2.1 mg/dL (1.6-2.6); Osmolality,Calculated 276 (280-300); Phosphorous 3.3 mg/dL (2.7-4.5); Sodium 132 mEq/L (136-145); eGFR For African Americans > 60 (> 60); eGFR For Non-African Americans > 60 (> 60)
[2021-09-07 08:35] LABS: Lymphocytes # 2.3 K/mcL (0.6-4.6); Neutrophils # 11.7 K/mcL (1.6-8.9)
[2021-09-07] MEDS: Levothyroxine Sodium 100 MCG VIAL IVP SCH (10:03)
[2021-09-07] MEDS: Pantoprazole 40 MG VIAL IVP SCH (10:04)
[2021-09-07] MEDS: Fluconazole 400 MG/200 ML 400 MG/200 ML BAG IVPB SCH (10:04)
[2021-09-07] MEDS: Ipratropium/Albuterol Neb 3 ML IH SCH ×4 (11:03→23:13)
[2021-09-07] MEDS ORDERED: Clinimix E 5%-15% SOLUTION 2,000 ML with MVI, adult with vitamin K 10 ML IVC SCH (17:00)
[2021-09-07] MEDS: Latanoprost 2.5 ML BOTTLE BOTH EYES SCH (21:33)
[2021-09-08] MEDS: Insulin LISPRO 300 UNITS/3 ML VIAL SUBQ SCH ×5 (00:57→16:38)
[2021-09-08] MEDS: Piperacillin/Tazobactam 3.375 GM in 0.9 % Sodium Chloride Mini Bag 100 ML IVPB SCH ×4 (01:24→23:56)
[2021-09-08] MEDS: Ipratropium/Albuterol Neb 3 ML IH SCH ×6 (04:02→23:56)
[2021-09-08] MEDS: *HR* Heparin 5,000 UNIT/ML VIAL SQ SCH ×2 (05:40→16:53)
[2021-09-08 06:01] LABS: Basophils % 0.2 %; Eosinophils # 0.2 K/mcL (0.0-0.6); Hematocrit 32.1 % (37.5-50.1); Hemoglobin 10.6 g/dL (12.9-16.9); Lymphocytes # 1.8 K/mcL (0.6-4.6); Lymphocytes % 9.3 %; Mean Corpuscular Hemoglobin 28.5 pg (28.0-33.3); Mean Corpuscular Volume 86.3 fL (83.0-100.0); Mean Platelet Volume 9.8 fL (9.4-12.4); Monocytes # 1.6 K/mcL (0.0-1.3); Monocytes % 8.2 %; Platelet Count 485 K/mcL (140-400); Red Blood Count 3.72 M/mcL (4.19-5.50); Red Cell Distribution Width 15.3 % (11.5-14.5); Segmented Neutrophils % 77.3 %; White Blood Count 19.6 K/mcL (4.3-11.1)
[2021-09-08 06:05] LABS: Neutrophils # 15.2 K/mcL (1.6-8.9)
[2021-09-08 06:25] LABS: Alanine Aminotransferase 96 Units/L (7-52); Albumin 2.5 g/dL (3.5-5.7); Albumin/Globulin Ratio 0.8 (1.1-2.2); Alkaline Phosphatase 189 Units/L (34-104); Aspartate Amino Transferase 55 Units/L (13-39); BUN/Creatinine Ratio 17 (6-26); Bilirubin,Total 0.7 mg/dL (0.3-1.0); Blood Urea Nitrogen 12 mg/dL (8-23); Calcium 8.3 mg/dL (8.6-10.3); Carbon Dioxide 25 mEq/L (23-29); Chloride 101 mEq/L (98-107); Glucose 103 mg/dL (70-105); Magnesium 2.1 mg/dL (1.6-2.6); Osmolality,Calculated 276 (280-300); Phosphorous 4.5 mg/dL (2.7-4.5); Potassium 4.1 mEq/L (3.5-5.1); Sodium 133 mEq/L (136-145); Total Protein 5.5 g/dL (6.4-8.9); eGFR For African Americans > 60 (> 60); eGFR For Non-African Americans > 60 (> 60)
[2021-09-08] MEDS: Fluconazole 400 MG/200 ML 400 MG/200 ML BAG IVPB SCH (08:33)
[2021-09-08] MEDS: Aspirin Enteric Coated 81 MG Tablet PO SCH (08:33)
[2021-09-08] MEDS: Acetylcysteine 10% 2 ML INHSOL IH SCH ×5 (10:06→23:56)
[2021-09-08 11:45] LABS: Adenovirus Not Detected (Not Detect); Bordetella Pertussis Not Detected (Not Detect); Chlamydophila pneumoniae Not Detected (Not Detect); Coronavirus 229E Not Detected (Not Detect); Coronavirus HKU1 Not Detected (Not Detect); Coronavirus NL63 Not Detected (Not Detect); Coronavirus OC43 Not Detected (Not Detect); Human Metapneumovirus Not Detected (Not Detect); Human Rhinovirus/Enterovirus Not Detected (Not Detect); Influenza A Subtype 2009 H1 Not Detected (Not Detect); Influenza B Not Detected (Not Detect); Mycoplasma pneumoniae Not Detected (Not Detect); Parainfluenza Virus 1 Not Detected (Not Detect); Parainfluenza Virus 2 Not Detected (Not Detect); Parainfluenza Virus 3 Not Detected (Not Detect); Parainfluenza Virus 4 Not Detected (Not Detect); Respiratory Syncytial Virus Not Detected (Not Detect); SARS-CoV-2 Not Detected (Not Detect)
[2021-09-08 15:01] LABS: Bilirubin,Urine Negative (Negative); Blood,Urine Negative (Negative); Clarity,Urine Clear (Clear); Color,Urine Yellow (Yellow); Glucose,Urine (UA) Normal (Normal); Ketones,Urine Negative (Negative); Leukocyte Esterase,Urine Negative (Negative); Nitrite,Urine Negative (Negative); PH,Urine 6.5 pH Units (5.0-8.0); Protein,Urine Trace mg/dL (Neg-Trace); Specific Gravity,Urine 1.026 (1.010-1.025)
[2021-09-08 15:20] LABS: Bacteria,Urine Few per hpf (None-Few); Mucus,Urine Few per lpf (None-Few); RBC,Urine 0-3 per hpf (0-3); WBC,Urine 0-3 per hpf (0-3)
[2021-09-08] MEDS: Azithromycin 250 MG TABLET PO SCH (16:51)
[2021-09-08] MEDS: Latanoprost 2.5 ML BOTTLE BOTH EYES SCH (21:05)
[2021-09-09] MEDS: Ipratropium/Albuterol Neb 3 ML IH SCH ×5 (04:32→20:45)
[2021-09-09] MEDS: Acetylcysteine 10% 2 ML INHSOL IH SCH (04:32)
[2021-09-09] MEDS: *HR* Heparin 5,000 UNIT/ML VIAL SQ SCH ×2 (06:13→17:35)
[2021-09-09 07:33] LABS: Basophils # 0.1 K/mcL (0.0-0.2); Basophils % 0.8 %; Eosinophils # 0.2 K/mcL (0.0-0.6); Eosinophils % 1.2 %; Hematocrit 32.1 % (37.5-50.1); Hemoglobin 10.7 g/dL (12.9-16.9); Immature Granulocytes % 2.9 % (0-4); Lymphocytes # 1.9 K/mcL (0.6-4.6); Lymphocytes % 11.1 %; Mean Corpuscular HGB Conc 33.3 g/dL (31.6-35.5); Mean Corpuscular Hemoglobin 29.2 pg (28.0-33.3); Mean Corpuscular Volume 87.7 fL (83.0-100.0); Mean Platelet Volume 9.9 fL (9.4-12.4); Monocytes # 1.5 K/mcL (0.0-1.3); Monocytes % 8.3 %; Neutrophils # 13.3 K/mcL (1.6-8.9); Platelet Count 595 K/mcL (140-400); Red Blood Count 3.66 M/mcL (4.19-5.50); Red Cell Distribution Width 14.9 % (11.5-14.5); Segmented Neutrophils % 75.7 %; White Blood Count 17.5 K/mcL (4.3-11.1)
[2021-09-09 07:47] LABS: BUN/Creatinine Ratio 15 (6-26); Blood Urea Nitrogen 11 mg/dL (8-23); Calcium 8.5 mg/dL (8.6-10.3); Carbon Dioxide 24 mEq/L (23-29); Chloride 104 mEq/L (98-107); Glucose 85 mg/dL (70-105); Osmolality,Calculated 283 (280-300); Potassium 4.2 mEq/L (3.5-5.1); Sodium 137 mEq/L (136-145); eGFR For African Americans > 60 (> 60); eGFR For Non-African Americans > 60 (> 60)
[2021-09-09] MEDS: Insulin LISPRO 300 UNITS/3 ML VIAL SUBQ SCH ×3 (08:09→17:29)
[2021-09-09] MEDS: Fluconazole 400 MG/200 ML 400 MG/200 ML BAG IVPB SCH (08:15)
[2021-09-09] MEDS: Piperacillin/Tazobactam 3.375 GM in 0.9 % Sodium Chloride Mini Bag 100 ML IVPB SCH ×2 (08:16→17:36)
[2021-09-09] MEDS: Azithromycin 250 MG TABLET PO SCH (08:16)
[2021-09-09] MEDS: Aspirin Enteric Coated 81 MG Tablet PO SCH (08:16)
[2021-09-09] MEDS: Latanoprost 2.5 ML BOTTLE BOTH EYES SCH (20:58)
[2021-09-10] MEDS: Ipratropium/Albuterol Neb 3 ML IH SCH ×6 (00:16→19:54)
[2021-09-10] MEDS: Piperacillin/Tazobactam 3.375 GM in 0.9 % Sodium Chloride Mini Bag 100 ML IVPB SCH ×3 (00:57→16:08)
[2021-09-10 01:25] LABS: Basophils # 0.1 K/mcL (0.0-0.2); Eosinophils # 0.2 K/mcL (0.0-0.6); Eosinophils % 1.7 %; Hematocrit 31.7 % (37.5-50.1); Hemoglobin 10.8 g/dL (12.9-16.9); Immature Granulocytes % 3.9 % (0-4); Lymphocytes # 2.4 K/mcL (0.6-4.6); Lymphocytes % 18.2 %; Mean Corpuscular HGB Conc 34.1 g/dL (31.6-35.5); Mean Corpuscular Hemoglobin 29.3 pg (28.0-33.3); Mean Corpuscular Volume 85.9 fL (83.0-100.0); Mean Platelet Volume 9.5 fL (9.4-12.4); Monocytes # 1.2 K/mcL (0.0-1.3); Neutrophils # 8.8 K/mcL (1.6-8.9); Platelet Count 631 K/mcL (140-400); Red Blood Count 3.69 M/mcL (4.19-5.50); Red Cell Distribution Width 14.9 % (11.5-14.5); Segmented Neutrophils % 66.2 %; White Blood Count 13.3 K/mcL (4.3-11.1)
[2021-09-10 02:18] LABS: BUN/Creatinine Ratio 12 (6-26); Blood Urea Nitrogen 8 mg/dL (8-23); Calcium 8.6 mg/dL (8.6-10.3); Carbon Dioxide 25 mEq/L (23-29); Chloride 102 mEq/L (98-107); Glucose 97 mg/dL (70-105); Osmolality,Calculated 274 (280-300); Potassium 3.9 mEq/L (3.5-5.1); Sodium 133 mEq/L (136-145); eGFR For African Americans > 60 (> 60); eGFR For Non-African Americans > 60 (> 60)
[2021-09-10] MEDS: *HR* Heparin 5,000 UNIT/ML VIAL SQ SCH (05:31)
[2021-09-10] MEDS: Aspirin Enteric Coated 81 MG Tablet PO SCH (08:14)
[2021-09-10] MEDS: Insulin LISPRO 300 UNITS/3 ML VIAL SUBQ SCH ×2 (08:14→12:50)
[2021-09-10] MEDS: Azithromycin 250 MG TABLET PO SCH (08:15)
[2021-09-10] MEDS: Fluconazole 400 MG/200 ML 400 MG/200 ML BAG IVPB SCH (08:16)
[2021-09-10] MEDS ORDERED: Iopamidol - 370 500 ML MLS IVP ONE (09:11)
[2021-09-10] MEDS ORDERED: Albumin Human 5% 12.5 GM/250 ML IV.SOLN ONE ×2 (16:22→20:33)
[2021-09-10] MEDS ORDERED: *HR* Propofol 200 MG/20 ML VIAL IVP ONE (16:26)
[2021-09-10] MEDS ORDERED: *HR* FentaNYL (PF) 100 MCG/2 ML VIAL ONE (16:26)
[2021-09-10] MEDS ORDERED: Lidocaine -MPF 2% 2 ML VIAL ONE ×2 (16:27)
[2021-09-10] MEDS ORDERED: Ondansetron 4 MG/2 ML VIAL ONE (16:27)
[2021-09-10] MEDS ORDERED: *HR* Succinylcholine 200 MG/10 ML VIAL IVP ONE (16:27)
[2021-09-10] MEDS ORDERED: *HR* Rocuronium Bromide 50 MG/5 ML VIAL ONE ×2 (16:27)
[2021-09-10] MEDS ORDERED: CefOXitin 2,000 MG VIAL ONE ×3 (16:56→20:52)
[2021-09-10] MEDS ORDERED: Insulin LISPRO 300 UNITS/3 ML VIAL SUBQ SCH (18:00)
[2021-09-10] MEDS ORDERED: *HR* HYDROMORPHONE 2 MG/ML VIAL ONE (19:14)
[2021-09-10] MEDS ORDERED: Ketamine HCL *QUVA* 50mg (1mL) SYRINGE ONE (19:21)
[2021-09-10] MEDS ORDERED: CefOXitin 1,000 MG VIAL ONE (20:53)
[2021-09-10] MEDS ORDERED: Sugammadex Sodium 200 MG/2 ML VIAL IV ONE (21:14)
[2021-09-10] MEDS: *HR* FentaNYL (PF) 100 MCG/2 ML VIAL IVP PRN ×4 (22:11→22:30)
[2021-09-10] MEDS ORDERED: *HR* Dextrose 50 % in Water (Syg) 50 ML SYRINGE IVP PRN (23:37)
[2021-09-10] MEDS ORDERED: D5% in Water 1,000 ML IVC PRN (23:37)
[2021-09-10] MEDS ORDERED: Dextrose Gel 15 GM/37.5 ML TUBE PO PRN ×2 (23:37)
[2021-09-10] MEDS ORDERED: Clinimix E 5%-20% SOLUTION 2,000 ML with MVI, adult with vitamin K 10 ML IVC SCH (23:37)
[2021-09-11] MEDS: Ipratropium/Albuterol Neb 3 ML IH SCH ×7 (00:28→23:23)
[2021-09-11] MEDS: Insulin LISPRO 300 UNITS/3 ML VIAL SUBQ SCH ×5 (00:54→23:50)
[2021-09-11] MEDS: *HR* Heparin 5,000 UNIT/ML VIAL SQ SCH ×2 (05:12→17:37)
[2021-09-11 05:50] LABS: Hematocrit 33.1 % (37.5-50.1); Hemoglobin 11.3 g/dL (12.9-16.9); Mean Corpuscular HGB Conc 34.1 g/dL (31.6-35.5); Mean Corpuscular Hemoglobin 29.6 pg (28.0-33.3); Mean Corpuscular Volume 86.6 fL (83.0-100.0); Mean Platelet Volume 9.6 fL (9.4-12.4); Platelet Count 705 K/mcL (140-400); Red Blood Count 3.82 M/mcL (4.19-5.50); Red Cell Distribution Width 15.1 % (11.5-14.5)
[2021-09-11 05:55] LABS: White Blood Count 23.5 K/mcL (4.3-11.1)
[2021-09-11 06:19] LABS: Lymphocytes # 1.4 K/mcL (0.6-4.6); Monocytes # 0.9 K/mcL (0.0-1.3); Neutrophils # 21.2 K/mcL (1.6-8.9)
[2021-09-11 06:20] LABS: Platelet Estimate Increased (Normal)
[2021-09-11] MEDS: Morphine Sulfate 2 MG/ML SYRINGE IVP PRN ×2 (06:30→09:10)
[2021-09-11] MEDS ORDERED: Azithromycin 500 MG in 0.9 % Sodium Chloride 250 ML IVPB SCH (09:00)
[2021-09-11] MEDS ORDERED: Pantoprazole 40 MG VIAL IVP SCH (09:00)
[2021-09-11] MEDS ORDERED: lisinopriL 20 MG TABLET PO SCH (09:00)
[2021-09-11] MEDS: Pantoprazole 40 MG VIAL IVP SCH (09:08)
[2021-09-11] MEDS: Piperacillin/Tazobactam 3.375 GM in 0.9 % Sodium Chloride Mini Bag 100 ML IVPB SCH ×3 (09:09→22:54)
[2021-09-11] MEDS: Fluconazole 400 MG/200 ML 400 MG/200 ML BAG IVPB SCH (09:09)
[2021-09-11] MEDS: Ringers Solution, Lactated 1,000 ML IVC SCH ×2 (09:10→20:31)
[2021-09-11] MEDS: 0.9 % Sodium Chloride 1,000 ML IVC SCH ×3 (15:58→22:55)
[2021-09-11] MEDS ORDERED: *HR* Metoprolol 5 MG/5 ML VIAL IVP PRN (17:49)
[2021-09-11] MEDS: D5% in 0.9% NACL w KCl 20 MEQ/1,000 ML MLS IVC SCH (20:30)
[2021-09-11] MEDS: Latanoprost 2.5 ML BOTTLE BOTH EYES SCH (20:31)
[2021-09-11 21:24] LABS: Albumin 2.4 g/dL (3.5-5.7); Bilirubin,Total 0.8 mg/dL (0.3-1.0); Calcium 7.6 mg/dL (8.6-10.3); Globulin 2.3 g/dL (2.4-3.5); Magnesium 1.7 mg/dL (1.6-2.6); Potassium 4.6 mEq/L (3.5-5.1); Total Protein 4.7 g/dL (6.4-8.9)
[2021-09-12] MEDS: 0.9 % Sodium Chloride 1,000 ML IVC SCH (00:30)
[2021-09-12 03:43] LABS: Hematocrit 25.4 % (37.5-50.1); Mean Corpuscular HGB Conc 33.9 g/dL (31.6-35.5); Monocytes % 4.9 %
[2021-09-12 03:45] LABS: Basophils # 0.1 K/mcL (0.0-0.2); Basophils % 0.3 %; Hemoglobin 8.6 g/dL (12.9-16.9); Immature Granulocytes % 1.4 % (0-4); Lymphocytes # 1.5 K/mcL (0.6-4.6); Lymphocytes % 5.4 %; Mean Corpuscular Hemoglobin 29.5 pg (28.0-33.3); Mean Platelet Volume 9.4 fL (9.4-12.4); Monocytes # 1.4 K/mcL (0.0-1.3); Platelet Count 576 K/mcL (140-400); Red Blood Count 2.92 M/mcL (4.19-5.50); Red Cell Distribution Width 15.3 % (11.5-14.5); White Blood Count 28.4 K/mcL (4.3-11.1)
[2021-09-12 04:05] LABS: Calcium 6.8 mg/dL (8.6-10.3); Magnesium 1.5 mg/dL (1.6-2.6); Phosphorous 3.6 mg/dL (2.7-4.5); Potassium 3.9 mEq/L (3.5-5.1)
[2021-09-12] MEDS: Ipratropium/Albuterol Neb 3 ML IH SCH ×5 (04:05→20:30)
[2021-09-12] MEDS: *HR* Heparin 5,000 UNIT/ML VIAL SQ SCH ×2 (05:39→13:32)
[2021-09-12] MEDS: Insulin LISPRO 300 UNITS/3 ML VIAL SUBQ SCH ×3 (05:40→18:08)
[2021-09-12 08:48] LABS: Hematocrit 27.1 % (37.5-50.1); Hemoglobin 9.2 g/dL (12.9-16.9)
[2021-09-12] MEDS: Pantoprazole 40 MG VIAL IVP SCH (09:14)
[2021-09-12] MEDS: Piperacillin/Tazobactam 3.375 GM in 0.9 % Sodium Chloride Mini Bag 100 ML IVPB SCH ×2 (09:15→16:59)
[2021-09-12] MEDS: Fluconazole 400 MG/200 ML 400 MG/200 ML BAG IVPB SCH (09:16)
[2021-09-12] MEDS: Acetaminophen IV 1,000 MG/100 ML BAG IVPB SCH ×2 (12:59→18:08)
[2021-09-12] MEDS: D5% in 0.9% NACL w KCl 20 MEQ/1,000 ML MLS IVC SCH (13:29)
[2021-09-12 13:31] LABS: Hematocrit 28.5 % (37.5-50.1); Hemoglobin 9.7 g/dL (12.9-16.9)
[2021-09-12] MEDS: Latanoprost 2.5 ML BOTTLE BOTH EYES SCH ×2 (13:32→21:53)
[2021-09-12] MEDS ORDERED: Clinimix E 5%-15% SOLUTION 2,000 ML with MVI, adult with vitamin K 10 ML IVC SCH (17:00)
[2021-09-12] MEDS: Morphine Sulfate 2 MG/ML SYRINGE IVP PRN (21:46)
[2021-09-13] MEDS: Insulin LISPRO 300 UNITS/3 ML VIAL SUBQ SCH ×4 (00:04→19:18)
[2021-09-13] MEDS: Ipratropium/Albuterol Neb 3 ML IH SCH ×7 (00:07→22:54)
[2021-09-13] MEDS: Piperacillin/Tazobactam 3.375 GM in 0.9 % Sodium Chloride Mini Bag 100 ML IVPB SCH ×3 (00:17→17:31)
[2021-09-13] MEDS: Acetaminophen IV 1,000 MG/100 ML BAG IVPB SCH ×4 (00:18→17:32)
[2021-09-13] MEDS: D5% in 0.9% NACL w KCl 20 MEQ/1,000 ML MLS IVC SCH ×2 (00:18→17:17)
[2021-09-13] MEDS: Morphine Sulfate 2 MG/ML SYRINGE IVP PRN ×3 (02:13→20:09)
[2021-09-13] MEDS: Fluconazole 400 MG/200 ML 400 MG/200 ML BAG IVPB SCH (09:08)
[2021-09-13] MEDS: Pantoprazole 40 MG VIAL IVP SCH (09:09)
[2021-09-13 10:05] LABS: Mean Corpuscular Hemoglobin 28.9 pg (28.0-33.3); White Blood Count 26.6 K/mcL (4.3-11.1)
[2021-09-13 10:07] LABS: Hematocrit 24.4 % (37.5-50.1); Hemoglobin 8.1 g/dL (12.9-16.9); Mean Corpuscular HGB Conc 33.2 g/dL (31.6-35.5); Mean Corpuscular Volume 87.1 fL (83.0-100.0); Mean Platelet Volume 9.4 fL (9.4-12.4); Platelet Count 531 K/mcL (140-400); Red Cell Distribution Width 15.4 % (11.5-14.5)
[2021-09-13 10:30] LABS: Alanine Aminotransferase 24 Units/L (7-52); Albumin 2.1 g/dL (3.5-5.7); Albumin/Globulin Ratio 0.9 (1.1-2.2); Alkaline Phosphatase 60 Units/L (34-104); Aspartate Amino Transferase 20 Units/L (13-39); BUN/Creatinine Ratio 22 (6-26); Bilirubin,Total 0.4 mg/dL (0.3-1.0); Blood Urea Nitrogen 18 mg/dL (8-23); Calcium 7.8 mg/dL (8.6-10.3); Carbon Dioxide 23 mEq/L (23-29); Chloride 110 mEq/L (98-107); Globulin 2.3 g/dL (2.4-3.5); Glucose 122 mg/dL (70-105); Magnesium 2.1 mg/dL (1.6-2.6); Osmolality,Calculated 285 (280-300); Phosphorous 2.5 mg/dL (2.7-4.5); Potassium 3.8 mEq/L (3.5-5.1); Sodium 136 mEq/L (136-145); Total Protein 4.4 g/dL (6.4-8.9); Triglycerides 107 mg/dL (< 150); eGFR For African Americans > 60 (> 60); eGFR For Non-African Americans > 60 (> 60)
[2021-09-13] MEDS ORDERED: D10% in Water 500 ML IVC PRN (13:40)
[2021-09-13 15:10] LABS: Lymphocytes # 0.5 K/mcL (0.6-4.6); Neutrophils # 26.1 K/mcL (1.6-8.9); Platelet Clumps Few (Not Present); Platelet Estimate Increased (Normal); Toxic Granulation Present (Not Present)
[2021-09-13] MEDS ORDERED: Clinimix E 5%-15% SOLUTION 2,000 ML with MVI, adult with vitamin K 10 ML IVC SCH (17:00)
[2021-09-13] MEDS: Latanoprost 2.5 ML BOTTLE BOTH EYES SCH (20:16)
[2021-09-14] MEDS: D5% in 0.9% NACL w KCl 20 MEQ/1,000 ML MLS IVC SCH ×3 (00:54→17:44)
[2021-09-14] MEDS: Acetaminophen IV 1,000 MG/100 ML BAG IVPB SCH ×4 (00:55→17:44)
[2021-09-14] MEDS: Insulin LISPRO 300 UNITS/3 ML VIAL SUBQ SCH ×4 (00:55→17:34)
[2021-09-14] MEDS: Piperacillin/Tazobactam 3.375 GM in 0.9 % Sodium Chloride Mini Bag 100 ML IVPB SCH ×3 (00:55→16:39)
[2021-09-14] MEDS: Morphine Sulfate 2 MG/ML SYRINGE IVP PRN ×5 (01:26→19:32)
[2021-09-14] MEDS: Ipratropium/Albuterol Neb 3 ML IH SCH ×6 (04:04→23:03)
[2021-09-14 04:46] LABS: Basophils # 0.1 K/mcL (0.0-0.2); Basophils % 0.3 %; Eosinophils # 0.4 K/mcL (0.0-0.6); Hematocrit 23.4 % (37.5-50.1); Hemoglobin 7.7 g/dL (12.9-16.9); Immature Granulocytes % 1.9 % (0-4); Lymphocytes # 1.9 K/mcL (0.6-4.6); Lymphocytes % 8.9 %; Mean Corpuscular HGB Conc 32.9 g/dL (31.6-35.5); Mean Corpuscular Hemoglobin 28.6 pg (28.0-33.3); Mean Platelet Volume 9.6 fL (9.4-12.4); Monocytes # 0.7 K/mcL (0.0-1.3); Monocytes % 3.5 %; Neutrophils # 17.7 K/mcL (1.6-8.9); Platelet Count 480 K/mcL (140-400); Red Blood Count 2.69 M/mcL (4.19-5.50); Red Cell Distribution Width 15.7 % (11.5-14.5); Segmented Neutrophils % 83.4 %; White Blood Count 21.2 K/mcL (4.3-11.1)
[2021-09-14 05:14] LABS: Alanine Aminotransferase 23 Units/L (7-52); Albumin 1.9 g/dL (3.5-5.7); Albumin/Globulin Ratio 0.8 (1.1-2.2); Alkaline Phosphatase 61 Units/L (34-104); Aspartate Amino Transferase 21 Units/L (13-39); BUN/Creatinine Ratio 20 (6-26); Bilirubin,Total 0.3 mg/dL (0.3-1.0); Blood Urea Nitrogen 13 mg/dL (8-23); Calcium 7.5 mg/dL (8.6-10.3); Carbon Dioxide 22 mEq/L (23-29); Chloride 110 mEq/L (98-107); Globulin 2.5 g/dL (2.4-3.5); Glucose 127 mg/dL (70-105); Magnesium 1.7 mg/dL (1.6-2.6); Osmolality,Calculated 284 (280-300); Phosphorous 2.8 mg/dL (2.7-4.5); Sodium 136 mEq/L (136-145); Total Protein 4.4 g/dL (6.4-8.9); eGFR For African Americans > 60 (> 60); eGFR For Non-African Americans > 60 (> 60)
[2021-09-14] MEDS ORDERED: Furosemide 20 MG/2 ML VIAL IVP ONE (06:55)
[2021-09-14] MEDS ORDERED: 0.9 % Sodium Chloride 250 ML IVC SCH (07:00)
[2021-09-14] MEDS: Pantoprazole 40 MG VIAL IVP SCH (08:55)
[2021-09-14] MEDS: Fluconazole 400 MG/200 ML 400 MG/200 ML BAG IVPB SCH (08:55)
[2021-09-14] MEDS ORDERED: Clinimix E 5%-15% SOLUTION 2,000 ML with MVI, adult with vitamin K 10 ML IVC SCH (17:00)
[2021-09-14] MEDS: Latanoprost 2.5 ML BOTTLE BOTH EYES SCH (19:18)
[2021-09-15] MEDS: Insulin LISPRO 300 UNITS/3 ML VIAL SUBQ SCH ×4 (00:25→20:53)
[2021-09-15] MEDS: Acetaminophen IV 1,000 MG/100 ML BAG IVPB SCH ×4 (00:47→19:35)
[2021-09-15] MEDS: Piperacillin/Tazobactam 3.375 GM in 0.9 % Sodium Chloride Mini Bag 100 ML IVPB SCH ×3 (00:48→17:06)
[2021-09-15] MEDS: Morphine Sulfate 2 MG/ML SYRINGE IVP PRN ×5 (00:49→20:51)
[2021-09-15] MEDS: Ipratropium/Albuterol Neb 3 ML IH SCH ×6 (03:59→23:12)
[2021-09-15 05:55] LABS: Mean Corpuscular HGB Conc 33.6 g/dL (31.6-35.5); Mean Corpuscular Hemoglobin 29.3 pg (28.0-33.3); Mean Corpuscular Volume 87.2 fL (83.0-100.0); Mean Platelet Volume 9.4 fL (9.4-12.4); Platelet Count 458 K/mcL (140-400); Red Blood Count 3.21 M/mcL (4.19-5.50); Red Cell Distribution Width 14.8 % (11.5-14.5); White Blood Count 16.7 K/mcL (4.3-11.1)
[2021-09-15 05:56] LABS: Hemoglobin 9.4 g/dL (12.9-16.9)
[2021-09-15 07:15] LABS: Alanine Aminotransferase 22 Units/L (7-52); Albumin 2.1 g/dL (3.5-5.7); Albumin/Globulin Ratio 0.8 (1.1-2.2); Alkaline Phosphatase 68 Units/L (34-104); Aspartate Amino Transferase 22 Units/L (13-39); BUN/Creatinine Ratio 20 (6-26); Bilirubin,Total 0.4 mg/dL (0.3-1.0); Blood Urea Nitrogen 11 mg/dL (8-23); Calcium 7.6 mg/dL (8.6-10.3); Carbon Dioxide 25 mEq/L (23-29); Chloride 103 mEq/L (98-107); Globulin 2.6 g/dL (2.4-3.5); Glucose 126 mg/dL (70-105); Magnesium 1.5 mg/dL (1.6-2.6); Osmolality,Calculated 275 (280-300); Phosphorous 2.7 mg/dL (2.7-4.5); Sodium 132 mEq/L (136-145); Total Protein 4.7 g/dL (6.4-8.9); eGFR For African Americans > 60 (> 60); eGFR For Non-African Americans > 60 (> 60)
[2021-09-15] MEDS: D5% in 0.9% NACL w KCl 20 MEQ/1,000 ML MLS IVC SCH ×2 (08:15→21:42)
[2021-09-15] MEDS: Pantoprazole 40 MG VIAL IVP SCH (09:22)
[2021-09-15] MEDS: Fluconazole 400 MG/200 ML 400 MG/200 ML BAG IVPB SCH (09:23)
[2021-09-15] MEDS: *HR* Metoprolol 5 MG/5 ML VIAL IVP SCH ×2 (12:58→17:07)
[2021-09-15] MEDS ORDERED: Clinimix E 5%-20% SOLUTION 2,000 ML, Amino Acids 10% 200 ML with MVI, adult with vita... IVC SCH (17:00)
[2021-09-15] MEDS: Latanoprost 2.5 ML BOTTLE BOTH EYES SCH (20:53)
[2021-09-16] MEDS: Piperacillin/Tazobactam 3.375 GM in 0.9 % Sodium Chloride Mini Bag 100 ML IVPB SCH ×3 (01:12→17:47)
[2021-09-16] MEDS: Acetaminophen IV 1,000 MG/100 ML BAG IVPB SCH ×4 (01:12→17:50)
[2021-09-16] MEDS: Insulin LISPRO 300 UNITS/3 ML VIAL SUBQ SCH ×4 (01:13→18:24)
[2021-09-16] MEDS: *HR* Metoprolol 5 MG/5 ML VIAL IVP SCH ×4 (01:13→17:53)
[2021-09-16] MEDS: Ipratropium/Albuterol Neb 3 ML IH SCH ×5 (04:05→20:32)
[2021-09-16] MEDS: Morphine Sulfate 2 MG/ML SYRINGE IVP PRN ×3 (05:21→20:28)
[2021-09-16] MEDS ORDERED: Iopamidol - 370 500 ML MLS IVP ONE (06:00)
[2021-09-16 06:01] LABS: Alanine Aminotransferase 21 Units/L (7-52); Albumin 2.1 g/dL (3.5-5.7); Albumin/Globulin Ratio 0.8 (1.1-2.2); Alkaline Phosphatase 78 Units/L (34-104); Aspartate Amino Transferase 21 Units/L (13-39); BUN/Creatinine Ratio 21 (6-26); Bilirubin,Total 0.4 mg/dL (0.3-1.0); Blood Urea Nitrogen 11 mg/dL (8-23); Calcium 7.8 mg/dL (8.6-10.3); Carbon Dioxide 25 mEq/L (23-29); Chloride 102 mEq/L (98-107); Globulin 2.8 g/dL (2.4-3.5); Glucose 132 mg/dL (70-105); Magnesium 1.6 mg/dL (1.6-2.6); Osmolality,Calculated 273 (280-300); Phosphorous 2.6 mg/dL (2.7-4.5); Potassium 3.9 mEq/L (3.5-5.1); Sodium 131 mEq/L (136-145); Total Protein 4.9 g/dL (6.4-8.9); eGFR For African Americans > 60 (> 60); eGFR For Non-African Americans > 60 (> 60)
[2021-09-16] MEDS: Ondansetron 4 MG/2 ML VIAL IVP PRN ×2 (08:00→20:28)
[2021-09-16] MEDS: Pantoprazole 40 MG VIAL IVP SCH (09:40)
[2021-09-16 10:02] LABS: Hematocrit 28.5 % (37.5-50.1); Hemoglobin 9.6 g/dL (12.9-16.9); Mean Corpuscular HGB Conc 33.7 g/dL (31.6-35.5); Mean Corpuscular Hemoglobin 29.1 pg (28.0-33.3); Mean Corpuscular Volume 86.4 fL (83.0-100.0); Mean Platelet Volume 9.3 fL (9.4-12.4); Platelet Count 334 K/mcL (140-400); Red Cell Distribution Width 14.6 % (11.5-14.5); White Blood Count 16.9 K/mcL (4.3-11.1)
[2021-09-16 10:53] LABS: Hypochromasia Present (Not Present); Monocytes # 1.7 K/mcL (0.0-1.3); Neutrophils # 12.8 K/mcL (1.6-8.9); Platelet Estimate Normal (Normal)
[2021-09-16] MEDS: Fluconazole 400 MG/200 ML 400 MG/200 ML BAG IVPB SCH (11:01)
[2021-09-16] MEDS: D5% in 0.9% NACL w KCl 20 MEQ/1,000 ML MLS IVC SCH (12:49)
[2021-09-16] MEDS ORDERED: Clinimix E 5%-20% SOLUTION 2,000 ML, Amino Acids 10% 200 ML with MVI, adult with vita... IVC SCH (17:00)
[2021-09-16] MEDS: Latanoprost 2.5 ML BOTTLE BOTH EYES SCH (20:13)
[2021-09-17] MEDS: Acetaminophen IV 1,000 MG/100 ML BAG IVPB SCH ×5 (00:28→23:03)
[2021-09-17] MEDS: *HR* Metoprolol 5 MG/5 ML VIAL IVP SCH ×5 (00:41→23:09)
[2021-09-17] MEDS: Piperacillin/Tazobactam 3.375 GM in 0.9 % Sodium Chloride Mini Bag 100 ML IVPB SCH ×4 (00:41→23:08)
[2021-09-17] MEDS: Insulin LISPRO 300 UNITS/3 ML VIAL SUBQ SCH ×4 (00:42→16:57)
[2021-09-17] MEDS: Ipratropium/Albuterol Neb 3 ML IH SCH ×7 (01:50→23:10)
[2021-09-17] MEDS: D5% in 0.9% NACL w KCl 20 MEQ/1,000 ML MLS IVC SCH ×2 (02:00→14:47)
[2021-09-17] MEDS: Ondansetron 4 MG/2 ML VIAL IVP PRN (05:13)
[2021-09-17 06:21] LABS: Basophils # 0.1 K/mcL (0.0-0.2); Basophils % 0.3 %; Eosinophils # 0.5 K/mcL (0.0-0.6); Eosinophils % 2.7 %; Hematocrit 27.9 % (37.5-50.1); Hemoglobin 9.3 g/dL (12.9-16.9); Immature Granulocytes % 10.3 % (0-4); Lymphocytes # 1.7 K/mcL (0.6-4.6); Lymphocytes % 9.4 %; Mean Corpuscular HGB Conc 33.3 g/dL (31.6-35.5); Mean Corpuscular Hemoglobin 28.7 pg (28.0-33.3); Mean Corpuscular Volume 86.1 fL (83.0-100.0); Mean Platelet Volume 9.3 fL (9.4-12.4); Monocytes # 1.3 K/mcL (0.0-1.3); Monocytes % 7.1 %; Neutrophils # 12.4 K/mcL (1.6-8.9); Platelet Count 532 K/mcL (140-400); Red Blood Count 3.24 M/mcL (4.19-5.50); Red Cell Distribution Width 14.7 % (11.5-14.5); Segmented Neutrophils % 70.2 %; White Blood Count 17.7 K/mcL (4.3-11.1)
[2021-09-17 06:42] LABS: Alanine Aminotransferase 21 Units/L (7-52); Albumin 2.2 g/dL (3.5-5.7); Albumin/Globulin Ratio 0.7 (1.1-2.2); Alkaline Phosphatase 98 Units/L (34-104); Aspartate Amino Transferase 22 Units/L (13-39); BUN/Creatinine Ratio 23 (6-26); Bilirubin,Total 0.4 mg/dL (0.3-1.0); Blood Urea Nitrogen 12 mg/dL (8-23); Calcium 7.9 mg/dL (8.6-10.3); Carbon Dioxide 23 mEq/L (23-29); Chloride 101 mEq/L (98-107); Glucose 135 mg/dL (70-105); Magnesium 1.6 mg/dL (1.6-2.6); Osmolality,Calculated 270 (280-300); Phosphorous 2.5 mg/dL (2.7-4.5); Potassium 4.1 mEq/L (3.5-5.1); Sodium 129 mEq/L (136-145); Total Protein 5.2 g/dL (6.4-8.9); eGFR For African Americans > 60 (> 60); eGFR For Non-African Americans > 60 (> 60)
[2021-09-17 06:57] LABS: Platelet Estimate Normal (Normal)
[2021-09-17] MEDS: Fluconazole 400 MG/200 ML 400 MG/200 ML BAG IVPB SCH (08:20)
[2021-09-17] MEDS: Pantoprazole 40 MG VIAL IVP SCH (08:21)
[2021-09-17] MEDS ORDERED: Clinimix E 5%-20% SOLUTION 2,000 ML, Amino Acids 10% 200 ML with MVI, adult with vita... IVC SCH (17:00)
[2021-09-17] MEDS: Latanoprost 2.5 ML BOTTLE BOTH EYES SCH (21:32)
[2021-09-18] MEDS: Insulin LISPRO 300 UNITS/3 ML VIAL SUBQ SCH ×4 (00:27→20:45)
[2021-09-18] MEDS: D5% in 0.9% NACL w KCl 20 MEQ/1,000 ML MLS IVC SCH ×3 (03:59→17:09)
[2021-09-18 04:04] LABS: Hematocrit 26.4 % (37.5-50.1); Hemoglobin 8.9 g/dL (12.9-16.9); Mean Corpuscular HGB Conc 33.7 g/dL (31.6-35.5); Mean Corpuscular Hemoglobin 29.6 pg (28.0-33.3); Mean Corpuscular Volume 87.7 fL (83.0-100.0); Mean Platelet Volume 10.3 fL (9.4-12.4); Platelet Count 348 K/mcL (140-400); Red Blood Count 3.01 M/mcL (4.19-5.50); Red Cell Distribution Width 14.9 % (11.5-14.5); White Blood Count 16.1 K/mcL (4.3-11.1)
[2021-09-18 04:22] LABS: Alanine Aminotransferase 20 Units/L (7-52); Albumin 2.2 g/dL (3.5-5.7); Albumin/Globulin Ratio 0.7 (1.1-2.2); Alkaline Phosphatase 114 Units/L (34-104); Aspartate Amino Transferase 22 Units/L (13-39); BUN/Creatinine Ratio 23 (6-26); Bilirubin,Total 0.4 mg/dL (0.3-1.0); Blood Urea Nitrogen 14 mg/dL (8-23); Carbon Dioxide 24 mEq/L (23-29); Chloride 103 mEq/L (98-107); Glucose 99 mg/dL (70-105); Magnesium 1.7 mg/dL (1.6-2.6); Osmolality,Calculated 275 (280-300); Phosphorous 2.3 mg/dL (2.7-4.5); Potassium 3.9 mEq/L (3.5-5.1); Sodium 132 mEq/L (136-145); Total Protein 5.2 g/dL (6.4-8.9); eGFR For African Americans > 60 (> 60); eGFR For Non-African Americans > 60 (> 60)
[2021-09-18] MEDS: Ipratropium/Albuterol Neb 3 ML IH SCH ×5 (04:25→20:17)
[2021-09-18 04:42] LABS: Lymphocytes # 3.9 K/mcL (0.6-4.6)
[2021-09-18 04:44] LABS: Large Platelets Present (Not Present); Platelet Estimate Normal (Normal)
[2021-09-18] MEDS: Acetaminophen IV 1,000 MG/100 ML BAG IVPB SCH ×3 (05:25→17:35)
[2021-09-18] MEDS: *HR* Metoprolol 5 MG/5 ML VIAL IVP SCH ×3 (05:26→17:09)
[2021-09-18] MEDS: Pantoprazole 40 MG VIAL IVP SCH (09:41)
[2021-09-18] MEDS: Piperacillin/Tazobactam 3.375 GM in 0.9 % Sodium Chloride Mini Bag 100 ML IVPB SCH ×2 (09:42→17:10)
[2021-09-18] MEDS: Fluconazole 400 MG/200 ML 400 MG/200 ML BAG IVPB SCH (09:42)
[2021-09-18] MEDS ORDERED: Clinimix E 5%-20% SOLUTION 2,000 ML, Amino Acids 10% 200 ML with MVI, adult with vita... IVC SCH (17:00)
[2021-09-18] MEDS: Latanoprost 2.5 ML BOTTLE BOTH EYES SCH (20:12)
[2021-09-18 20:21] VITALS: TEMP 98.7
[2021-09-18 22:47] VITALS: BP 154/85; PULSE 87; O2SAT 97
[2021-09-19] MEDS: Ipratropium/Albuterol Neb 3 ML IH SCH (01:16)
== END 2021-09-19 01:10 | disposition short-term general hospital (02) | DRG 329 ==
LOC: 3ANU 18:58 → EMEROOARM 18:58 → SUATTDRO 23:29 → 3ANU 23:50 → 2NNU 09-12 12:51 → 3ANU 09-16 23:48
PROVIDERS: ADMIT Student in an Organized Health Care Education/Training Program; ATTEND Internal Medicine